=== PATIENT | female | born 1975 | race Hispanic/Latino ===

== ENCOUNTER → 2018-01-15 | Outpatient (CLI) | payer OTHER ==
--- NOTE | 2018-01-18 18:11 | Diagnostic Imaging Report ---
#[id number] - MGSCRBIL #BILATERAL DIGITAL SCREENING MAMMOGRAM WITH CAD: 01/15/2018 CLINICAL: Routine screening. Comparison is made to exams dated: 12/19/2016 mammogram, 12/29/2015 mammogram, 12/10/2015 mammogram and 12/28/2014 mammogram - [facility]. Current study contains 4 films. The tissue of both breasts is extremely dense, which lowers the sensitivity of mammography. Current study was also evaluated with a Computer Aided Detection (CAD) system. Scattered areas of calcification are present in both breasts. There is an amorphous linear grouped calcification in the left breast at 1 o'clock posterior depth-this grouped lei++ is increasing compared to most recent prior and also appears more linear as if following a duct. No other significant masses, calcifications, or other findings are seen in either breast. IMPRESSION: INCOMPLETE: NEEDS ADDITIONAL IMAGING EVALUATION The amorphous linear calcification in the left breast is indeterminate. Spot magnification views are recommended. The patient will be contacted by the Mammography Department to schedule this appointment. Khadar Sow Jr., D.O. cw/:01/18/2018 09:08:12 Jar Capper: Rosa Isela JOE(R)(M), [facility] letter sent: Additional Imaging Needed Mammogram BI-RADS: 0 Indeterminate
== END ==
LOC: MAMMO 10:41
PROVIDERS: ATTEND Obstetrics & Gynecology
DX: Z12.31 Encounter for screening mammogram for malignant neoplasm of breast (principal)
CPT/HCPCS: 77067

== ENCOUNTER → 2018-02-13 | Outpatient (CLI) | payer OTHER ==
--- NOTE | 2018-02-15 16:32 | Diagnostic Imaging Report ---
#[id number] - MGDXLT #UNILATERAL LEFT DIGITAL DIAGNOSTIC MAMMOGRAM WITH SPOT COMPRESSION AND MAGNIFICATION: 02/13/2018 Comparison is made to exams dated: 01/15/2018 mammogram and 12/19/2016 mammogram - [facility]. Current study contains 4 films. The tissue of the left breast is extremely dense, which lowers the sensitivity of mammography. There is a heterogeneous calcification in the left breast at 1 o'clock middle depth that is increasing. No other significant masses or calcifications are seen in the breast. IMPRESSION: SUSPICIOUS OF MALIGNANCY The heterogeneous calcification in the left breast is at a low suspicion for malignancy but a stereotactic biopsy is recommended due to the increasing nature. A phone call was made to the physician's office. The patient will be contacted by the Mammography Department to schedule this appointment. Khadar Sow Jr., D.O. cw/:02/15/2018 14:33:08 Chainstitch Pants Outseamer: Rosa Isela ESTRELLA)(Vikash), [facility] letter sent: Biopsy Required Mammogram BI-RADS: 4a Suspicious abnormality - low suspicion for malignancy
== END ==
LOC: MAMMO 09:35
PROVIDERS: ATTEND Obstetrics & Gynecology
DX: N64.59 Other signs and symptoms in breast (principal)

== ENCOUNTER → 2018-03-14 | Outpatient (CLI) | payer OTHER ==
[~2018-03-14] MED LIST: LIDOCAINE 2% /EPINEPHRINE 20 ML SDV INJ ONE; LIDOCAINE HCL 1% LOCAL INJ 20 ML VIAL ONE; SODIUM CHLORIDE 0.9% 250ML 250 ML ONE
--- NOTE | 2018-03-15 08:58 | Diagnostic Imaging Report ---
#[id number] - [id number] STEREOTACTIC GUIDED BIOPSY: 03/14/2018 PATIENT CONSENT: According to [facility] requirements, a time out was performed, correct site was localized and the patient was consented. PROCEDURE DESCRIPTION: A stereotactic biopsy of calcifications in the left breast was requested. The procedure was fully discussed with the patient and her including benefits, risks and alternatives. The need for a post biopsy clip was discussed. It was performed with written informed consent. A realtime court reporter out was taken prior to beginning the biopsy to confirm patient and procedure, including laterality. The area of concern was targeted stereotactically using an upright biopsy machine. The area over the site was prepared in the standard sterile fashion. Local anesthsia was achieved with 1% Lidocaine. The biopsy probe was advanced to the lesion and vacuum assisted core biopsy samples obtained. A micromarker was placed. After removal of the probe, hemostasis was achieved with compression and a sterile bandage was applied. A specimen radiograph shows at least 9 micro-calcifications within the cores, concordant with biopsy images. Following the procedure, the patient was discharged from the breast area with no immediate complications. Full post biopsy instructions were provided and acknowledged by the patient. Correlation is made to exams dated: 02/13/2018 mammogram, 01/15/2018 mammogram and 12/19/2016 mammogram - [facility]. IMPRESSION: STEREOTACTIC GUIDED BIOPSY Follow-up with ACR/ACS guidelines. Khadar leigh/magi:03/14/2018 13:31:08 Prototype Engineer Manager: Rosa Isela ESTRELLA)(Vikash), [facility] [id number]
== END ==
LOC: MAMMO 08:37
PROVIDERS: ATTEND Obstetrics & Gynecology
DX: N63.20 Unspecified lump in the left breast, unspecified quadrant (principal); N64.59 Other signs and symptoms in breast
CPT/HCPCS: 19081; 88305; J2001 ×2; J7050

== ENCOUNTER → 2019-05-07 | Outpatient (CLI) | payer OTHER ==
--- NOTE | 2019-05-19 08:43 | Diagnostic Imaging Report ---
#[id number] - MGSCRBIL #BILATERAL DIGITAL SCREENING MAMMOGRAM WITH CAD: 05/07/2019 CLINICAL: Routine screening. Comparison is made to exams dated: 02/13/2018 mammogram, 01/15/2018 mammogram and 12/19/2016 mammogram - [facility]. Current study contains 4 films. The tissue of both breasts is extremely dense, which lowers the sensitivity of mammography. Current study was also evaluated with a Computer Aided Detection (CAD) system. Benign appearing calcifications are noted bilaterally. A clip is noted in the left breast. No significant masses, calcifications, or other findings are seen in either breast. IMPRESSION: BENIGN There is no mammographic evidence of malignancy. A 1 year screening mammogram is recommended. The patient will be notified by letter of the results. BRIDGER MONSALVE M.D. ct/penrad:05/16/2019 14:27:43 Loftsman: Rosa Isela JOE(Nedra)(Vikash), [facility] letter sent: Normal Exam Mammogram BI-RADS: 2 Benign
== END ==
LOC: MAMMO 08:50
PROVIDERS: ATTEND Internal Medicine
DX: Z12.31 Encounter for screening mammogram for malignant neoplasm of breast (principal)
CPT/HCPCS: 77067

== ENCOUNTER → 2022-01-25 | Outpatient (CLI) | payer BC | LOC: MAMMO 10:43 | PROVIDERS: ATTEND Internal Medicine | DX: Z12.31 Encounter for screening mammogram for malignant neoplasm of breast (principal) | CPT/HCPCS: 77067 ==

== ENCOUNTER → 2023-08-29 | Outpatient (REF) | payer BC | LOC: MAMMO 11:42 | PROVIDERS: ATTEND Internal Medicine | DX: Z12.31 Encounter for screening mammogram for malignant neoplasm of breast (principal) | CPT/HCPCS: 77067 ==